=== PATIENT | female | born 1970 | race American Indian/Alaskan Native ===

== ENCOUNTER 2017-09-30 14:19 | Outpatient (CLI) | payer OTHER ==
--- NOTE | 2017-09-30 16:48 | Mammography Report ---
BILATERAL DIGITAL SCREENING MAMMOGRAM with CAD : 09/30/17 14:19:00 CLINICAL: Routine screening. COMPARISON:10/27/13 FINDINGS: The breasts are heterogeneously dense, which may obscure small masses. No mass, architectural distortion or suspicious calcifications. IMPRESSION: No mammographic evidence of malignancy. BI-RADS CATEGORY: 2 -- Benign RECOMMENDATION: Routine mammographic screening in one year. COMMENT: Patient follow-up letters are generated by our [employer] application.
== END 2017-09-30 14:20 | disposition home or self-care (01) ==
LOC: SPVWC 14:19
DX: Z12.31 Encounter for screening mammogram for malignant neoplasm of breast (principal)
CPT/HCPCS: 77067; G0202